=== PATIENT | female | born 1995 | race Caucasian/White ===

== ENCOUNTER 2018-01-13 20:04 | Emergency (ER) | payer MEDICAID ==
[~2018-01-13] VITALS: Ht 175.3 cm; Wt 96.2 kg
[2018-01-13 20:09] VITALS: BP 133/86
--- NOTE | 2018-01-13 20:11 | NUR ---
TO BED # 6 AMBULATORY, REPORT GIVEN TO MIKE MCCARTHY
--- NOTE | 2018-01-13 20:11 | NUR ---
22/ came in w c/o RUQ abd pain x 1 week exacerbated by movement and breathing. BS active x 4, abd soft, round, -tenderness. Denies fever/chills, N/V/D, hematuria/dysuria. Denies PMH
--- NOTE | 2018-01-13 22:00 | NUR ---
Patient appears to be resting comfortably in bed. Vital Signs within normal limits. Respirations even and unlabored.
[2018-01-13] MEDS ORDERED: KETOROLAC 30 MG/ML VIAL IVP ONE (22:50)
[2018-01-13] MEDS ORDERED: FAMOTIDINE 20 MG/2 ML VIAL IVP ONE (22:50)
--- NOTE | 2018-01-13 23:04 | NUR ---
US AT BEDSIDE. PT REQUEST TO WAIT UNTIL ULTRASOUND IS DONE TO GIVE MEDICINE
[2018-01-13 23:19] LABS: BASOPHILS # (AUTO) 0.1 K/uL (0.00-0.22); BASOPHILS % (AUTO) 0.6 % (0.0-2.0); EOSINOPHILS # (AUTO) 0.1 K/uL (0-0.4); EOSINOPHILS % (AUTO) 1.5 % (0.0-4.0); HEMATOCRIT 35.8 % (36-48); HEMOGLOBIN 11.8 g/dL (12.0-16.0); LYMPHOCYTES # (AUTO) 2.1 K/uL (2.5-16.5); LYMPHOCYTES % (AUTO) 23.3 % (20.5-51.1); MEAN CORPUSCULAR HEMOGLOBIN 29 pg (27-31); MEAN CORPUSCULAR HGB CONC 33 g/dL (33-37); MEAN CORPUSCULAR VOLUME 87.7 fL (80-94); MONOCYTES # (AUTO) 0.7 K/uL (0.8-1.0); MONOCYTES % (AUTO) 7.3 % (1.7-9.3); NEUTROPHILS # (AUTO) 6.1 K/uL (1.8-7.7); NEUTROPHILS % (AUTO) 67.3 % (42.2-75.2); PLATELET COUNT (AUTO) 290 K/uL (140-450); RED BLOOD CELL COUNT(AUTO) 4.08 MIL/uL (4.20-5.40); RED CELL DISTRIBUTION WIDTH 13.1 % (11.6-13.7); WHITE BLOOD COUNT (AUTO) 9.1 K/uL (4.8-10.8)
[2018-01-13 23:35] LABS: ANION GAP 7.8 (8-16); CARBON DIOXIDE 32.7 mmol/L (21-32); CREATININE 0.5 mg/dL (0.6-1.3); POTASSIUM 3.5 mmol/L (3.5-5.1)
[2018-01-13 23:40] LABS: ALBUMIN 3.4 g/dL (3.4-5.0); TOTAL BILIRUBIN 0.3 mg/dL (0.0-1.0)
--- NOTE | 2018-01-14 02:28 | NUR ---
DPatient discharged with v/s stable. Written and verbal after care instructions given and explained. Patient alert, oriented and verbalized understanding of instructions. Ambulatory with steady gait. All questions addressed prior to discharge. ID band removed. Patient advised to follow up with PMD. Rx of ALBUTEROL INH, IBUPROFEN, NORCO given. Patient educated on indication of medication including possible reaction and side effects. Opportunity to ask questions provided and answered.
[2018-01-14 02:34] VITALS: BP 104/72
== END 2018-01-14 00:28 | disposition home or self-care (01) ==
LOC: MED 20:04
DX: R10.11 Right upper quadrant pain (principal)
CPT/HCPCS: 36415; 76705; 80053; 81002; 81025; 83690; 85025; 96374; 96375; 99285; J1885; J3490; Q0092

== ENCOUNTER 2018-11-04 01:19 | Emergency (ER) | payer MEDICAID ==
[~2018-11-04] VITALS: Ht 175.3 cm; Wt 95.3 kg
[2018-11-04 01:25] VITALS: BP 159/88
--- NOTE | 2018-11-04 01:52 | NUR ---
PT TO ED WITH C/O DYSURIA AND VAGINAL ITCHING S/P UNPROTECTED SEX X 1 WEEK AGO. PT DENIES DISCHARGE OR BLEEDING. PT ALSO C/O SORE THROAT X 1 WEEK. DENIES ANY SOB OR DIFFICLTY SWALLOWING. PT PLACED INTO BED, PENDING MD NEIL.
[2018-11-04] MEDS ORDERED: cefTRIAXone 250 MG in LIDOCAINE MPF 1% - 5 mL VIAL 0.9 ML IM ONE (02:00)
[2018-11-04] MEDS ORDERED: AZITHROMYCIN 250 MG TAB PO ONE (02:00)
[2018-11-04 02:34] VITALS: BP 159/88
--- NOTE | 2018-11-04 02:34 | NUR ---
Patient discharged with v/s stable. Written and verbal after care instructions given and explained. Patient alert, oriented and verbalized understanding of instructions. Ambulatory with steady gait. All questions addressed prior to discharge. ID band removed. Patient advised to follow up with PMD. Rx of CIPRO, DIFLUCAN, MOTRIN, PREDNSONE given. Patient educated on indication of medication including possible reaction and side effects. Opportunity to ask questions provided and answered.
[2018-11-06 06:12] LABS: CHLAMYDIA TRACHOMATIS AMP DNA Negative (Negative)
--- NOTE | 2018-11-06 10:14 | NUR ---
lab identified positive n. gonorrhoeae---collected 11/04/2018 treated with azithromycin 1GM po and Rocephin 250mg IM concurred with treatment.
== END 2018-11-04 02:34 | disposition home or self-care (01) ==
LOC: MED 01:19
DX: N39.0 Urinary tract infection, site not specified (principal); J02.9 Acute pharyngitis, unspecified; R59.1 Generalized enlarged lymph nodes; F17.200 Nicotine dependence, unspecified, uncomplicated
CPT/HCPCS: 36415; 81002; 81025; 96372; 99283; J0696; J2001; 87491

== ENCOUNTER 2019-01-20 19:24 | Emergency (ER) | payer MEDICAID ==
[~2019-01-20] VITALS: Ht 175.3 cm; Wt 90.7 kg
[2019-01-20 19:50] VITALS: BP 139/75
--- NOTE | 2019-01-20 19:53 | NUR ---
TO LOBBY A/W BED, AMBULATORY
--- NOTE | 2019-01-20 22:02 | NUR ---
PT AMBULATED TO BED 02
--- NOTE | 2019-01-20 22:22 | NUR ---
23 Y/O FEMALE PRESENTS TO ED, C/O RIGHT THUMB PAIN 03/07. PT STATES SHE WAS PUSHING THE DOOR YESTERDAY AND HEARD A "POP" ON HER RIGHT THUMB. SWELLING ON RIGHT THUMB, LIMITED ROM, NO TINGLING SENSATION. DENIES TAKING ANY MEDICATIONS. PT VSS. ERMD AWARE. WILL CONTINUE TO MONITOR.
--- NOTE | 2019-01-20 23:36 | NUR ---
Dr. Tate examining patient.
[2019-01-20] MEDS ORDERED: LIDOCAINE 2% 1000 MG/50 ML VIAL INJ ONE (23:40)
--- NOTE | 2019-01-21 00:39 | NUR ---
PT REFUSES TO GIVE URINE SAMPLE AND KNOWS ABOUT CONSEQUENCES OF IF SHE IS .
--- NOTE | 2019-01-21 00:43 | NUR ---
PT MOTHER IN LAW CALLED, NO ANSWER MESSAGE LEFT TO MAINTENANCE INSTRUCTOR PT , PER PT REQUEST.
--- NOTE | 2019-01-21 03:41 | NUR ---
PT WAS GIVEN A THUMB SPICA FOR HER RIGHT THUMB. PTS PMSC WNL.
[2019-01-21 04:22] VITALS: BP 121/75
--- NOTE | 2019-01-21 04:22 | NUR ---
PT DISCHARGED WITH PAPERWORK. NO RX PROVIDED. EDUCATED PT REGARDING D/C DIAGNOSIS. PT VERBALIZED UNDERSTANDING OF TEACHING. TOLD PT TO FOLLOW UP WITH PCP AND CONTACT REFERAL MD. TOLD PT WHEN TO RETURN TO ED. PT VSS. ALL QUESTIONS ANSWERED.
== END 2019-01-21 04:22 | disposition home or self-care (01) ==
LOC: MED 19:24
DX: S63.101A Unspecified subluxation of right thumb, initial encounter (principal); F17.200 Nicotine dependence, unspecified, uncomplicated; Z98.890 Other specified postprocedural states; W51.XXXA Accidental striking against or bumped into by another person, initial encounter; Y93.89 Activity, other specified; Y92.89 Other specified places as the place of occurrence of the external cause; Y99.8 Other external cause status
CPT/HCPCS: 26700; 73140; 99283; J2001; Q0092

== ENCOUNTER 2020-02-03 14:39 | Emergency (ER) | payer MEDICAID ==
[~2020-02-03] VITALS: Ht 175.3 cm; Wt 90.7 kg
[2020-02-03 14:42] VITALS: BP 134/89
[2020-02-03] MEDS ORDERED: LIDOCAINE/EPI 1% 1:100000 20 ML VIAL INJ ONE (15:35)
--- NOTE | 2020-02-03 15:55 | NUR ---
PT LAC CLEANED AND IRRIGATED WITH NORMAL SALINE, LAC SET UP AT BED SIDE AND ERMD NOTIFIED.
--- NOTE | 2020-02-03 16:24 | NUR ---
PT LAC DRESSED WITH NON-ADHERENT GUAZE PAD AND 4" GUAZE ROLL
[2020-02-03 16:31] VITALS: BP 134/89
--- NOTE | 2020-02-03 16:32 | NUR ---
Patient discharged with v/s stable. Written and verbal after care instructions given and explained. Patient verbalized understanding. Ambulatory with steady gait. All questions addressed prior to discharge. Advised to follow up with PMD.
== END 2020-02-03 16:32 | disposition home or self-care (01) ==
LOC: MED 14:39
DX: S81.011A Laceration without foreign body, right knee, initial encounter (principal); Z98.890 Other specified postprocedural states; W22.8XXA Striking against or struck by other objects, initial encounter; Y93.89 Activity, other specified; Y92.89 Other specified places as the place of occurrence of the external cause; Y99.8 Other external cause status
CPT/HCPCS: 12002; 90471; 90715; 99283; J2001

== ENCOUNTER 2020-02-10 14:31 | Emergency (ER) | payer MEDICAID ==
[~2020-02-10] VITALS: Ht 175.3 cm; Wt 90.7 kg
[2020-02-10 14:50] VITALS: BP 132/74
--- NOTE | 2020-02-10 15:00 | NUR ---
PT 24 Y/O FEMALE BIB SELF FOR C/O RECHECK. SUTURE REMOVAL OF R LATERAL KNEE. PT DENIES PAIN. PT DENIES FEVERS, REDNESS, SWELLING, FOUL ODOR, OR DRAINAGE FROM LAC SITE. PT VSS. PT RESTING IN BED, BED LOCKED IN LOWEST POSTION. MEDHX: NONE ALLERGIES: NKA
--- NOTE | 2020-02-10 15:07 | NUR ---
ERMD AT BEDSIDE.
[2020-02-10 15:30] VITALS: BP 132/74
== END 2020-02-10 15:30 | disposition home or self-care (01) ==
LOC: MED 14:31
DX: S81.011D Laceration without foreign body, right knee, subsequent encounter (principal); Z98.890 Other specified postprocedural states; X58.XXXD Exposure to other specified factors, subsequent encounter
CPT/HCPCS: 99281

== ENCOUNTER 2020-02-20 19:20 | Emergency (ER) | payer MEDICAID ==
[~2020-02-20] VITALS: Ht 175.3 cm; Wt 98.5 kg
[2020-02-20 19:29] VITALS: BP 158/85
[2020-02-20] MEDS ORDERED: BACITRACIN OINT 500 UNITS/GM PKT TP ONE (19:41)
[2020-02-20 19:45] VITALS: BP 158/85
== END 2020-02-20 19:45 | disposition home or self-care (01) ==
LOC: MED 19:20
DX: S81.811D Laceration without foreign body, right lower leg, subsequent encounter (principal); X58.XXXD Exposure to other specified factors, subsequent encounter
CPT/HCPCS: 99281

== ENCOUNTER 2020-02-29 09:01 | Emergency (ER) | payer MEDICAID ==
[~2020-02-29] VITALS: Ht 175.3 cm; Wt 98.0 kg
[2020-02-29 09:08] VITALS: BP 141/73
[2020-02-29 10:55] VITALS: BP 135/71
[2020-02-29] MEDS ORDERED: ACETAMINOPHEN EXTRA STRENGTH 500 MG TAB PO ONE (10:55)
== END 2020-02-29 10:55 | disposition home or self-care (01) ==
LOC: MED 09:01
DX: S90.32XA Contusion of left foot, initial encounter (principal); S09.90XA Unspecified injury of head, initial encounter; W18.30XA Fall on same level, unspecified, initial encounter; Y93.89 Activity, other specified; Y92.89 Other specified places as the place of occurrence of the external cause; Y99.8 Other external cause status
CPT/HCPCS: 73630; 99283

== ENCOUNTER 2021-01-18 14:25 | Emergency (ER) | payer MEDICAID ==
[~2021-01-18] VITALS: Ht 175.3 cm; Wt 108.4 kg
[2021-01-18 14:51] VITALS: BP 154/76
[2021-01-18] MEDS ORDERED: LIDO1ADH47 TP (16:49)
[2021-01-18] MEDS ORDERED: METH-1681 PO (16:49)
[2021-01-18] MEDS ORDERED: NAPR-54 PO (16:49)
[2021-01-18] MEDS ORDERED: KETOROLAC 30 MG/ML VIAL IM ONE (16:50)
--- NOTE | 2021-01-18 17:00 | NUR ---
25yo f c/o upper back pain x 5 days, worsened today. pain 8/. denies trauma or injury to area. denies cough, runny nose, fever.
[2021-01-18 17:21] VITALS: BP 140/70
--- NOTE | 2021-01-18 17:33 | NUR ---
Patient discharged with v/s stable. Written and verbal after care instructions given and explained. Patient alert, oriented and verbalized understanding of instructions. Ambulatory with steady gait. All questions addressed prior to discharge. ID band removed. Patient advised to follow up with PMD. Rx of LIDOCAINE,ROBAXIN,NAPROSYN given. Patient educated on indication of medication including possible reaction and side effects. Opportunity to ask questions provided and answered.
== END 2021-01-18 17:33 | disposition home or self-care (01) ==
LOC: MED 14:25
DX: S39.012A Strain of muscle, fascia and tendon of lower back, initial encounter (principal); Z79.899 Other long term (current) drug therapy; X58.XXXA Exposure to other specified factors, initial encounter; Y93.89 Activity, other specified; Y92.89 Other specified places as the place of occurrence of the external cause; Y99.8 Other external cause status
CPT/HCPCS: 71045; 96372; 99283; J1885